=== PATIENT | female | born 1965 | race Two or more races ===

== ENCOUNTER 2019-07-29 07:11 | Outpatient (CLI) | payer OTHER ==
[~2019-07-29 07:11] MED LIST: ASA81 MG; DIOVAN HCT 320/1 TAB PO; DIOVAN HCT 3201 EAC1; INVOKAMET XR 11 EAC1; KETO10TA2 PO; NEURONTIN300 MG; SOLIQUA 100 UNIT3 ML; SYNTHROID100 MCG PO; TOPROL XL25 MG PO; TOPROL XL50 M1
== END 2019-07-29 07:16 | disposition home or self-care (01) ==
LOC: SONOGRAMA 07:11
DX: E04.2 Nontoxic multinodular goiter (principal)